=== PATIENT | female | born 1985 | race Two or more races ===

== ENCOUNTER 2021-03-14 04:16 | Emergency (ER) | payer SELFPAY ==
[~2021-03-14] VITALS: Ht 167.6 cm; Wt 85.0 kg
[2021-03-14] MEDS ORDERED: IBUPROFEN 600MG TABLET PO ONE (04:30)
[2021-03-14] MEDS ORDERED: ACETAMINOPHEN 325MG TABLET PO ONE (04:30)
[2021-03-14] MEDS ORDERED: NAPR-1176 MT (05:05)
[2021-03-14] MEDS ORDERED: ACET-2708 MT (05:05)
[2021-03-14 05:56] VITALS: BP 132/78
== END 2021-03-14 05:57 | disposition home or self-care (01) ==
LOC: ER 04:16
DX: S82.62XA Displaced fracture of lateral malleolus of left fibula, initial encounter for closed fracture (principal); W18.41XA Slipping, tripping and stumbling without falling due to stepping on object, initial encounter; Y93.9 Activity, unspecified; Y92.89 Other specified places as the place of occurrence of the external cause
CPT/HCPCS: 29515; 73610; 73630; 81025; 99284